=== PATIENT | female | born 1975 | race Asian ===

== ENCOUNTER 2021-04-26 01:03 | Emergency (ER) | payer OTHER ==
[~2021-04-26] VITALS: Ht 157.5 cm; Wt 70.3 kg
[2021-04-26 01:05] VITALS: BP 159/110
--- NOTE | 2021-04-26 01:20 | NUR ---
PT BIBA TO ER BED 10
--- NOTE | 2021-04-26 01:21 | NUR ---
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 PT PICKED UP FROM [facility], PER WORKERS PT WAS CONVULSING IN SEAT, PER BOYFRIEND THAT DID NOT HAPPEN. MEDIC STATES PT HAD A SYNCOPE EPISODE ON ARRIVAL, DENIES FALLING ON FLOOR OR HITTING HEAD. PT STATES SHE FEELS WEAK, HAND FREIGHT COORDINATOR STRONG BILAT. PT ALERT TO SELF. 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
[2021-04-26] MEDS ORDERED: NACL 0.9% 1,000 ML IV ONE (01:45)
[2021-04-26] MEDS ORDERED: MECLIZINE 25 MG TAB PO ONE (01:45)
--- NOTE | 2021-04-26 01:52 | NUR ---
lab at bedside.
--- NOTE | 2021-04-26 02:00 | NUR ---
pt refused CT, stated she just had an MRI at [facility]. dr. narayan made aware.
[2021-04-26 02:16] LABS: BASOPHILS % (AUTO) 0.4 % (0.0-2.0); EOSINOPHILS # (AUTO) 0.3 K/uL (0-0.4); HEMATOCRIT 34.8 % (36-48); HEMOGLOBIN 11.6 g/dL (12.0-16.0); LYMPHOCYTES # (AUTO) 2.7 K/uL (2.5-16.5); LYMPHOCYTES % (AUTO) 38.5 % (20.5-51.1); MEAN CORPUSCULAR HEMOGLOBIN 29 pg (27-31); MEAN CORPUSCULAR HGB CONC 33 g/dL (33-37); MEAN CORPUSCULAR VOLUME 85.6 fL (80-94); MONOCYTES # (AUTO) 0.4 K/uL (0.8-1.0); MONOCYTES % (AUTO) 6.2 % (1.7-9.3); NEUTROPHILS # (AUTO) 3.5 K/uL (1.8-7.7); NEUTROPHILS % (AUTO) 50.9 % (42.2-75.2); PLATELET COUNT (AUTO) 540 K/uL (140-450); RED BLOOD CELL COUNT(AUTO) 4.06 MIL/uL (4.20-5.40); WHITE BLOOD COUNT (AUTO) 6.9 K/uL (4.8-10.8)
[2021-04-26 02:33] LABS: ALBUMIN 3.5 g/dL (3.4-5.0); ANION GAP 10.8 (8-16); CARBON DIOXIDE 26.9 mmol/L (21-32); POTASSIUM 3.7 mmol/L (3.5-5.1); TOTAL BILIRUBIN 0.2 mg/dL (0.0-1.0)
[2021-04-26] MEDS ORDERED: KETOROLAC 30 MG/ML VIAL IVP ONE (02:50)
[2021-04-26] MEDS ORDERED: MECL-303 PO (03:57)
[2021-04-26] MEDS ORDERED: ONDA-188 SL (03:57)
[2021-04-26] MEDS ORDERED: IBUP-2213 PO (03:57)
[2021-04-26 04:20] VITALS: BP 130/75
--- NOTE | 2021-04-26 04:20 | NUR ---
Patient discharged with v/s stable. Written and verbal after care instructions given and explained. Patient alert, oriented and verbalized understanding of instructions. Ambulatory with steady gait. All questions addressed prior to discharge. ID band removed. Patient advised to follow up with PMD. Rx of IBUPROFEN,MECLIZINE AND ZOFRAN given. Patient educated on indication of medication including possible reaction and side effects. Opportunity to ask questions provided and answered.
== END 2021-04-26 04:20 | disposition home or self-care (01) ==
LOC: MED 01:03
DX: R42 Dizziness and giddiness (principal); R51.9 Headache, unspecified
CPT/HCPCS: 36415; 80053; 85025; 96361; 96374; 99283; J1885; J7030; J8597

== ENCOUNTER 2023-11-20 23:48 | Emergency (ER) | payer OTHER ==
[~2023-11-20] VITALS: Ht 162.6 cm; Wt 90.7 kg
[~2023-11-20 23:48] MED LIST: IBUP-2213 PO; MECL-303 PO; ONDA-188 SL
[2023-11-20 23:51] VITALS: O2SAT 95
[2023-11-20 23:54] VITALS: BP 123/78; PULSE 80; RESP 20; TEMP 97.9; O2SAT 97
[2023-11-21 02:37] VITALS: BP 114/65; PULSE 82; RESP 15; TEMP 97.6; O2SAT 98
== END 2023-11-21 02:37 | disposition short-term general hospital (02) ==
LOC: MED 23:48
DX: R56.9 Unspecified convulsions (principal); E11.9 Type 2 diabetes mellitus without complications; E78.00 Pure hypercholesterolemia, unspecified; Z86.018 Personal history of other benign neoplasm; Z79.899 Other long term (current) drug therapy; Z88.6 Allergy status to analgesic agent; Z88.5 Allergy status to narcotic agent; Z88.4 Allergy status to anesthetic agent
CPT/HCPCS: 71045; 82948; 93005; 99285; Q0092